=== PATIENT | male | born 1980 ===

== ENCOUNTER 2018-07-24 12:51 | Emergency (ER) | payer SELFPAY ==
[~2018-07-24] VITALS: Ht 182.9 cm; Wt 75.0 kg
[2018-07-24 12:58] VITALS: TEMP 97.7
[2018-07-24] MEDS ORDERED: NORCO 325 MG-51 TAB PO (15:53)
[2018-07-24] MEDS ORDERED: CEPHALEXIN500 M1 PO (15:53)
[2018-07-24 16:20] VITALS: BP 109/73; PULSE 69
== END 2018-07-24 16:20 | disposition home or self-care (01) ==
LOC: COL.ER 12:51
DX: S92.421A Displaced fracture of distal phalanx of right great toe, initial encounter for closed fracture (principal); S91.211A Laceration without foreign body of right great toe with damage to nail, initial encounter; Z23 Encounter for immunization; W20.8XXA Other cause of strike by thrown, projected or falling object, initial encounter; Y92.59 Other trade areas as the place of occurrence of the external cause